=== PATIENT | male | born 1990 | race American Indian/Alaskan Native ===

== ENCOUNTER 2017-07-13 01:48 | Emergency (ER) | payer SELFPAY ==
[2017-07-13 02:17] VITALS: RESP 18; O2SAT 99
[2017-07-13] MEDS ORDERED: Morphine 4 MG/ML VIAL IV ONE (02:33)
[2017-07-13] MEDS ORDERED: Clindamycin 300 MG in Sodium Chloride 0.9% 50 ML IVPB STA (02:33)
--- NOTE | 2017-07-13 04:39 | C.PDOC ---
History Of Present Illness 27 year old male presents to the ER recently released from [facility] where he was told to visit the ER to get set up with his regular psych medications. Patient cannot remember what medications he was taking before, he only remembers being on haldol. Denies any physical complaints, suicidal ideation, homicidal ideation, depression, or anxiety. Time Seen by Provider: 07/13/17 02:18 Chief Complaint (Nursing): Med Refill History Per: Patient History/Exam Limitations: no limitations Recent travel outside of the [place]: No Past Medical History Reviewed: Historical Data, Nursing Documentation, Vital Signs Vital Signs: Last Vital Signs Temp 97.9 F 07/13/17 02:06 Pulse 95 H 07/13/17 02:06 Resp 18 07/13/17 02:06 BP 112/79 07/13/17 02:06 Pulse Ox 99 07/13/17 04:46 - Medical History PMH: Asthma Family History: States: Unknown Family Hx - Social History Hx Alcohol Use: No Hx Substance Use: No - Immunization History Hx Tetanus Toxoid Vaccination: No Hx Influenza Vaccination: No Hx Pneumococcal Vaccination: No Review Of Systems Constitutional: Negative for: Fever, Chills Gastrointestinal: Negative for: Nausea, Vomiting, Diarrhea Psych: Negative for: Anxiety, Depression, Suicidal ideation Physical Exam - Physical Exam Appears: Non-toxic, No Acute Distress Skin: Normal Color, Warm, Dry Head: Atraumatic, Normacephalic Eye(s): bilateral: Normal Inspection Chest: Symmetrical, No Tenderness Cardiovascular: Rhythm Regular Respiratory: Normal Breath Sounds, No Rales, No Rhonchi, No Wheezing Neurological/Psych: Oriented x3, Normal Speech ED Course And Treatment O2 Sat by Pulse Oximetry: 99 (Room air) Pulse Ox Interpretation: Normal Progress Note: Patient was seen by plate put in worker who set him an appointment at [facility] for further evaluation and management. Patient is requesting food to eat and to sleep a while prior to discharge, will allow to sleep until morning. Disposition - Disposition Referrals: Non [facility] Provider, [Primary Care Provider] - [place] [facility] , mental health [Other] Disposition: HOME/ ROUTINE Disposition Time: 05:10 Condition: STABLE Additional Instructions: PLEASE FOLLOW UP AT [facility] FOR EVALUATION FOR MANAGEMENT Forms: General Discharge Instructions, NI (Tanzanian) - Clinical Impression Clinical Impression: Review of medication, Psychiatric disorder - PA / [employer] / Resident Statement MD/DO has reviewed & agrees with the documentation as recorded. - Scribe Statement The provider has reviewed the documentation as recorded by the Scribceferino Guidry All medical record entries made by the Tanjaibceferino were at my direction and personally dictated by me. I have reviewed the chart and agree that the record accurately reflects my personal performance of the history, physical exam, medical decision making, and the department course for this patient. I have also personally directed, reviewed, and agree with the discharge instructions and disposition.
[2017-07-13 05:15] VITALS: BP 111/65; PULSE 83; TEMP 97.6
== END 2017-07-13 05:13 | disposition home or self-care (01) ==
LOC: C.ER 01:48 → SUPCPDRO 01:48 → C.ER 05:13
DX: Z76.0 Encounter for issue of repeat prescription (principal); F99 Mental disorder, not otherwise specified